=== PATIENT | male | born 1990 | race Caucasian/White ===

== ENCOUNTER 2016-08-31 04:11 | Emergency (ER) | payer MEDICAID ==
[~2016-08-31] VITALS: Ht 172.7 cm; Wt 77.1 kg
--- NOTE | 2016-08-31 04:15 | NUR ---
Patient to ER bed 4 to gown for evaluation. Side rails up. Report given to Yara WALTERS.
--- NOTE | 2016-08-31 04:24 | NUR ---
Patient to ER C/O fever "on and off" since Tuesday with sore throat and "just not feeling good" patient has multiple skin wounds on face, hands, forearms including blisters on mouth. No signs of acute distress.
--- NOTE | 2016-08-31 04:39 | NUR ---
ER MD Quach at bedside for evaluation
[2016-08-31 04:42] VITALS: BP_SYST 135
[2016-08-31] MEDS ORDERED: ACETAMINOPHEN 325 MG TABLET ONE (04:54)
[2016-08-31] MEDS ORDERED: ADDERALL PO (05:08)
[2016-08-31] MEDS ORDERED: ACYCLOVIR 400 MG TABLET PO ONE (05:15)
[2016-08-31 05:50] VITALS: BP_SYST 124
--- NOTE | 2016-08-31 05:50 | NUR ---
Patient given written and verbal discharge instructions and verbalizes understanding. ER MD Quach discussed with patient the results and treatment provided. Patient in stable condition. ID arm band removed. Rx of zovirax given. Patient educated on pain management and to follow up with PMD. Pain Scale 0/10. Opportunity for questions provided and answered.
== END 2016-08-31 05:50 | disposition home or self-care (01) ==
LOC: SED 04:11
DX: B08.5 Enteroviral vesicular pharyngitis (principal)
CPT/HCPCS: 99283